=== PATIENT | male | born 1980 | race Caucasian/White ===

== ENCOUNTER 2022-09-25 13:21 | Emergency (ER) | payer SELFPAY ==
[2022-09-25 13:37] VITALS: BP 131/73; PULSE 67; RESP 16; TEMP 37.1; O2SAT 99
--- NOTE | 2022-09-25 13:52 | ED.URI ---
HPI - URI/Sore Throat General Chief Complaint: Upper Respiratory Infection Stated Complaint: positive for covid Time Seen by Provider: 09/25/22 13:45 Source: patient Mode of arrival: ambulatory Limitations: no limitations History of Present Illness HPI Narrative: Mr. Barbosa is a 42-year-old male patient presenting to the clinic today with complaints of being positive for COVID. He reports that his symptoms started on Saturday with nasal congestion and runny nose. Does have some body aches but denies any known fever. Reports he took an at-home COVID test this morning and was positive. MD elicited complaint: cough, rhinorrhea and nasal congestion Related Data Allergies Allergy/AdvReac Type Severity Reaction Status Date / Time No Known Allergies Allergy Unverified 03/07/17 18:55 Review of Systems Review of Systems: Pertinent positives per HPI. Patient denies any fever, chills, rash, headache, visual changes, dizziness, shortness of breath, chest pain, palpitations, nausea, vomiting, diarrhea, constipation, abdominal pain, or any urinary issues. [facility] Family History Family History (Updated 04/27/16 @ 23:21 by DOCTOR UNKNOWN) Mother Hypertension Father Patient's father is in good health Sibling Patient's sister is in good health Patient's brother is in good health Social History Social History Smoking status: Heavy tobacco smoker Alcohol intake: never Comments At the time of my signature, I reviewed and agree with the nursing past medical, surgical, social, and family history. There is no relevant family history pertinent to the patient complaint. Exam Narrative: General: Well-developed, well nourished, in no apparent distress Head: Normocephalic, atraumatic Eyes: Pupils equally round and reactive to light bilaterally, EOM intact, sclera and conjunctive clear, no discharge, lids normal Ears: TMs intact and clear, ear canals clear, no drainage, grossly hearing normal. Nose: Nares patent, clear nasal discharge, no inflammation, no sinus tenderness. Mouth: Oral pharynx without lesions or masses, good dentition, MMM. Postnasal drip Neck: Supple, trachea midline, no enlargement of anterior or posterior cervical nodes, no thyroid masses or goiter palpable. Cardio: Regular rate and rhythm, s1 and s2 normal, no murmur appreciated. Resp: Clear to auscultation bilaterally, no rhonchi, rales, wheezing or rubs Course Course Emergency Course: Portions of this record may have been created with voice recognition software. Level of Care: Express Care Visit Vital Signs Vital signs: Vital Signs Temperature 37.1 C 09/25/22 13:37 Pulse Rate 67 09/25/22 13:37 Respiratory Rate 16 09/25/22 13:37 Blood Pressure 131/73 09/25/22 13:37 Pulse Oximetry 99 09/25/22 13:37 Temperature 37.1 C 09/25/22 13:37 Pulse Rate 67 09/25/22 13:37 Respiratory Rate 16 09/25/22 13:37 Blood Pressure 131/73 09/25/22 13:37 Pulse Oximetry 99 09/25/22 13:37 Vital signs reviewed MDM - URI/Sore Throat MDM Narrative Medical decision making narrative: At the time of visit patient is resting comfortably on the exam table. Lung sounds are clear and SpO2 is 99% on room air. His covid test was positive in the clinic today. Patient does not have any past medical history of COPD, asthma, autoimmune disorder, or high blood pressure. Only risk factors would be heavy smoker and obesity. Offered antivirals however he declines. Supportive measures were discussed with the patient he voiced understanding of discharge instructions and agrees to treatment plan. Differential Diagnosis Differential diagnosis: Likely upper respiratory infection, otitis media, sinusitis, viral infection, bronchitis, influenza, pharyngitis and other (COVID) Discharge Plan Discharge Clinical Impression: COVID-19 Patient Disposition: Home, Self-Care Condition: Stable
== END 2022-09-25 14:10 | disposition home or self-care (01) ==
PROVIDERS: Emergency Provider Nurse Practitioner Family
DX: U07.1 COVID-19 (principal); F17.290 Nicotine dependence, other tobacco product, uncomplicated
CPT/HCPCS: 87426; 99203; C9803; G0463

== ENCOUNTER 2023-07-08 15:50 | Emergency (ER) | payer BC, SELFPAY ==
--- NOTE | 2023-07-08 15:54 | ED.MALEGU ---
HPI - Male Genitourinary General Chief complaint: Urogenital-Male Stated complaint: Uti symptoms Time Seen by Provider: 07/08/23 15:53 Source: patient Mode of arrival: ambulatory Limitations: no limitations History of Present Illness HPI Narrative: Bill is a 43-year-old male patient presenting to clinic today with complaints of possible UTIx 2-3days. Here is reporting some pain at the end of his urinary stream and also some urinary frequency. He denies any trouble starting his stream. No history of BPH. Denies any fever, chills, abdominal pain, or flank pain. He denies any risk for STIs Related Data Allergies Allergy/AdvReac Type Severity Reaction Status Date / Time No Known Allergies Allergy Unverified 07/08/23 15:58 Review of Systems Review of Systems: Pertinent positives per HPI. Patient denies any fever, chills, rash, headache, visual changes, dizziness, cough, runny nose, sore throat, shortness of breath, chest pain, palpitations, nausea, vomiting, diarrhea, constipation, abdominal pain PMFSH Family History Family History Mother Hypertension Father Patient's father is in good health Sibling Patient's sister is in good health Patient's brother is in good health Social History Social History Smoking status: Heavy tobacco smoker Alcohol intake: never Comments At the time of my signature, I reviewed and agree with the nursing past medical, surgical, social, and family history. There is no relevant family history pertinent to the patient complaint. Exam Narrative: General: Well-developed, well nourished, in no apparent distress. Head: Normocephalic, atraumatic. Cardio: Regular rate and rhythm, s1 and s2 normal, no murmur appreciated. Resp: Clear to auscultation bilaterally, no rhonchi, rales, wheezing or rubs. Abdomen: Soft, pliable, bowel sounds present in all quadrants, non-tender to palpation, no organomegly, no CVAT tenderness. Course Course Emergency Course: Portions of this record may have been created with voice recognition software. Level of Care: Express Care Visit Vital Signs Vital signs: Vital signs reviewed MDM - Male Genitourinary MDM Narrative Medical decision making narrative: At the time of visit patient resting exam exam. Urinalysis was performed and shows 1+ leukocyte and trace of blood. We will send for culture. Will place patient on Bactrim DS. Supportive measures were discussed with the patient he voiced understanding of discharge instructions and agrees to treatment plan. Differential Diagnosis Differential diagnosis: Likely urinary tract infection, urethritis, epididymitis, prostatitis and other (Cystitis, sexually transmitted infection) Discharge Plan Discharge Clinical Impression: Urinary tract infection Patient Disposition: Home, Self-Care Condition: Stable Instructions: Antibiotic Form, Urinary Tract Infection in Men (ED) Additional Instructions: UA is positive for bacteria and blood. We will send urine for culture Take Bactrim as prescribed Increase fluids and stay well hydrated Avoid tub baths If sexually active- pee before and after intercourse. Wear cotton panties Avoid tight clothing up against the genitals Follow up with your PCP in 1 week if symptoms persist. Prescriptions: New sulfamethoxazole-trimethoprim [Bactrim DS] 800-160 mg tablet 1 tablet PO Q12H 7 Days Qty: 14 0RF Follow-up/Referrals: UNKNOWN,DOCTOR [Non-Staff] - Time of Disposition: 16:07 Quality NIHSS Nursing Documentation ED NIHSS nursing documentation: reviewed/agree
[2023-07-08 16:06] VITALS: BP 135/78; PULSE 63; RESP 16; TEMP 36.8; O2SAT 100
== END 2023-07-08 16:11 | disposition home or self-care (01) ==
PROVIDERS: Emergency Provider Nurse Practitioner Family
DX: N39.0 Urinary tract infection, site not specified (principal)
CPT/HCPCS: 81003; 87086; 99213; G0463

== ENCOUNTER 2024-05-29 18:28 | Emergency (ER) | payer BC, SELFPAY ==
--- NOTE | 2024-05-29 18:35 | ED.SKABFB ---
HPI - Skin/Abscess/Foreign Bdy General Chief complaint: Skin/Abscess/Foreign Body Stated complaint: LUMP IN L ARMPIT Time Seen by Provider: 05/29/24 18:59 Source: patient and RN notes reviewed Mode of arrival: ambulatory Limitations: dementia History of Present Illness HPI narrative: 44-year-old male presents with concern for a lump in his left axilla. He reports he noticed it 3 days ago. Reports is only tender my touches it. He denies redness, warmth, drainage. MD complaint: other (Redness) Related Data Home Medications Medication Instructions Recorded Confirmed No Home Medications 05/29/24 05/29/24 Allergies Allergy/AdvReac Type Severity Reaction Status Date / Time No Known Allergies Allergy Unverified 07/08/23 15:58 Review of Systems Review of Systems: CONSTITUTIONAL: Denies malaise, chills, sweats, or fever. EYES: Denies visual changes, redness, or discharge. ENT: Denies rhinorrhea, congestion, sinus pain, otalgia or sore throat. CARDIOVASCULAR: Denies chest pain, palpitations, or edema. RESPIRATORY: Denies cough or dyspnea. SKIN: Reports a lump in his left axilla MUSCULOSKELETAL: Denies back pain, joint pain, or myalgia. NEUROLOGIC: Denies numbness, weakness, or headache. PSYCHIATRIC: Denies anxiety or depression. All systems reviewed & are unremarkable except as noted in HPI and below PMFSH Family History Family History Mother Hypertension Father Patient's father is in good health Sibling Patient's sister is in good health Patient's brother is in good health Social History Social History Smoking status: Heavy tobacco smoker Alcohol intake: never Comments At time of signature, agree with nursing past medical, surgical, social and family history. There is no relevant family history pertinent to the presenting complaint Exam Narrative: GENERAL: Well-appearing, well-nourished, and in no acute distress. HEAD: Normocephalic, atraumatic. EYES: PERRLA, conjunctivae clear ENT: Mucous membranes moist. NECK: Supple. No lymphadenopathy CHEST: Clear to auscultation. No respiratory distress. HEART: Regular rate and rhythm. SKIN: Warm, dry. No Erythema, induration, tenderness, warmth noted. No vesicles, bullae, necrosis, ecchymosis, crepitus noted. Palpable mobile lymph node in the left axilla, tender NEURO: Alert and oriented x3. PSYCH: Normal mood and affect Course Course Emergency Course: Patient is aware of diagnosis, understands and agrees to treatment plan. Anticipatory guidance given. Patient agrees to follow-up as directed and is aware of reasons to seek care at the emergency department. Portions of this record may have been created with voice recognition software Level of Care: Express Care Visit Vital Signs Vital signs: Vital Signs Temperature 97.9 F 05/29/24 18:45 Pulse Rate 66 05/29/24 18:45 Respiratory Rate 16 05/29/24 18:45 Blood Pressure 135/82 05/29/24 18:45 Pulse Oximetry 98 05/29/24 18:45 Temperature 97.9 F 05/29/24 18:45 Pulse Rate 66 05/29/24 18:45 Respiratory Rate 16 05/29/24 18:45 Blood Pressure 135/82 05/29/24 18:45 Pulse Oximetry 98 05/29/24 18:45 Reviewed. MDM - Skin/Abscess/Foreign Bdy MDM Narrative Medical decision making narrative: I evaluated this in the express care. History is obtained from patient who is an independent historian and physical exam was performed.? Available medical records were reviewed. ? Exam findings and relevant testing show no acute concerns or changes; patient is non-toxic appearing and is in no distress. No risk factors or findings concerning for epidural abscess, diskitis, vertebral osteomyelitis, cord compression, cauda equina, vertebral fracture or bone malignancy, AAA, or pyelonephritis. Patient instructed to consider further imaging and workup through their
[2024-05-29 18:45] VITALS: BP 135/82; PULSE 66; RESP 16; TEMP 36.6; O2SAT 98
== END 2024-05-29 19:14 | disposition home or self-care (01) ==
PROVIDERS: Emergency Provider Nurse Practitioner
DX: R59.1 Generalized enlarged lymph nodes (principal); F17.200 Nicotine dependence, unspecified, uncomplicated
CPT/HCPCS: 99211; G0463

== ENCOUNTER 2025-01-12 00:51 | Day surgery (SDC) | payer BC, SELFPAY ==
[2025-01-06 12:31] VITALS: BMI 36.2
--- OUTSIDE RECORDS SUMMARY | 2025-01-12 00:55 | XMS_ITS | Continuity of Care Document ---
Author Organization [facility] Address [address] [place] [address] Phone Care Team Providers Care Wildlife Refuge Manager Name Role Phone Yas, Edward Unavailable Unavailable Advance Directives Directive Yes / No Effective Date File Name No Information Encounters Encounter Description Practice Location Reason(s) For Visit Diagnoses Date Provider Providers Copied on Encounter [facility], [address], [place], [place], [id number], [place] tel:[phone] [facility] No Information Apr-0 4-200 1 Doisy Edward. [address] , [address], [place], [address], [place]. tel:[phone] Family History Family Member Type Diagnosis Age At Onset No Information Payers Payer name Insurance type Covered libertarian ID Authoriza tion(s) [employer] SOI CI [id number] Medicaid [facility] [id number] Social History Type Description Quantity Date Captured Comments Sex Male Smoking Status No Information Chief Complaint And Reason For Visit No Information Reason For Referral Reason For Referral No Information History Of Present Illness Encounter Date Complaint History Of Prese nt Illness No Information Functional Status Date Functional Assessmen t No Information Instructions Date Instruction Additional Infor mation No Information Assessments Type Assessment Date No Information Patient Care Teams Name Effective Dates (start - stop) Status Members No Information
[2025-01-12 12:15] VITALS: BP 124/76; PULSE 52; RESP 16; TEMP 36.1; O2SAT 100
[2025-01-12] MEDS: LACTATED RINGERS 1,000 ML 150 ML IV CONT (12:26)
--- NOTE | 2025-01-12 13:00 | P.PNAN_ITS ---
Anes - Initial Pre Proc Eval Procedure: Operation Date: 01/12/25 13:00 Proposed Procedures p Colonoscopy - Madan Huff MD Date/Time: 01/12/25 13:00 Surgeon: Madan Huff MD Pre Op Diagnosis: Hemorrhage of anus and rectum Patient Data Age: 44 Gender: M Height: 1.75 m Weight: 106.9 kg Last Vital Signs Temp 36.1 C L 01/12/25 12:15 Pulse 52 L 01/12/25 12:15 Resp 16 01/12/25 12:15 BP 124/76 01/12/25 12:15 Pulse Ox 100 01/12/25 12:15 O2 Del Method Room Air 01/12/25 12:15 Allergies Allergy/AdvReac Type Severity Reaction Status Date / Time No Known Allergies Allergy Verified 01/12/25 12:13 Home Medications ?Medication ?Instructions ?Recorded ?Confirmed ?Type No Home Medications 05/29/24 01/06/25 History Patient hx anesthesia problems: none Family hx anesthesia problems: none Results Review: All pre-operative results and documents have been reviewed as part of the pre-operative evaluation. [facility] Family History Family History Mother Hypertension Father Patient's father is in good health Sibling Patient's sister is in good health Patient's brother is in good health Social History Social History Smoking packs per day: 1 Smoking cigarettes per day: 20.0 Years smoked: 30 Smoking pack-years: 30.00 Smoking status: Current every day smoker Tobacco type: cigarettes Alcohol intake: never Substance use type: marijuana Other substance usage details: smoking Living arrangements: with family Additional living arrangements comments: Spiritual care concerns: No Anes - Eval Final PreProcedure Day of Procedure 01/12/25 13:00 Patient weight: obese Heart: regular rate and rhythm Lungs: clear to auscultation Airway: Mallampati scale class II Neurological: alert and oriented Last oral intake: >/= 8 hours ASA classification: III Emergent: no Anesthetic plan: proceed Anesthesia type and monitoring: general GIVS and standard monitoring Results Review: All pre-operative results and documents have been reviewed as part of the pre- operative evaluation. Informed Consent: The patient's anesthetic plan and its attendant risks and benefits were discussed with the patient/family/POA. Questions were solicited and answers provided to the satisfaction of the patient/family/POA.
--- NOTE | 2025-01-12 13:10 | PM.HPGS ---
History of Present Illness History of Present Illness Consent: Risks, benefits, and alternatives have been discussed and questions answered. Patient agrees to proceed with procedure. Chief complaint: Hemorrhage of anus and rectum Narrative: Bill Barbosa is a 44 year old male here for first colonoscopy, had intermittent blood in stool Review of Systems Review of Systems: All systems reviewed & are unremarkable except as noted in HPI and below PMFSH Family History Family History Mother Hypertension Father Patient's father is in good health Sibling Patient's sister is in good health Patient's brother is in good health Social History Social History Smoking packs per day: 1 Smoking cigarettes per day: 20.0 Years smoked: 30 Smoking pack-years: 30.00 Smoking status: Current every day smoker Tobacco type: cigarettes Alcohol intake: never Substance use type: marijuana Other substance usage details: smoking Living arrangements: with family Additional living arrangements comments: Spiritual care concerns: No Meds Home Medications and Allergies Home Medications ?Medication ?Instructions ?Recorded ?Confirmed ?Type No Home Medications 05/29/24 01/06/25 History Allergies Allergy/AdvReac Type Severity Reaction Status Date / Time No Known Allergies Allergy Verified 01/12/25 12:13 Vital Signs Vital Signs - 24 hr 01/12/25 12:15 Temperature 97.0 F L Pulse Rate 52 L Respiratory Rate 16 Blood Pressure 124/76 Pulse Oximetry 100 Oxygen Delivery Room Air Exam Const: General: comfortable and no acute distress HENMT: Face/Nose/Sinus: Normal nares present Eyes: General: appearance normal, both eyes and all related structures Neck: Neck: no JVD Resp: Auscultation: clear to auscultation bilaterally Cardio: Rate: regular rate Rhythm: regular rhythm GI: Inspection: non-distended GI Palp: Yes Soft to palpation Skin: General skin exam: normal color Neuro: General: gait normal Speech: normal speech Extrem: General: normal to inspection Psych: Mental Status: mental status grossly normal Assessment and Plan Assessment and plan (1) BRBPR (bright red blood per rectum): Code(s): K62.5 - Hemorrhage of anus and rectum Status: Acute Assessment and Plan: colonoscopy
[2025-01-12 13:48] VITALS: BP 101/84; PULSE 52; RESP 19; O2SAT 100
[2025-01-12 13:58] VITALS: BP 117/75; PULSE 59; RESP 19; O2SAT 100
[2025-01-12 14:08] VITALS: BP 124/77; PULSE 55; RESP 20; O2SAT 100
== END 2025-01-12 14:21 | disposition home or self-care (01) ==
PROVIDERS: PCP Family Medicine; Visit Provider Internal Medicine Gastroenterology
PROC: 0DJD8ZZ Inspection of Lower Intestinal Tract, Via Natural or Artificial Opening Endoscopic (ICD-10-PCS; CPT 45378; principal; 2025-01-12 13:00)
DX: D12.0 Benign neoplasm of cecum (principal); D12.3 Benign neoplasm of transverse colon; D12.4 Benign neoplasm of descending colon; D12.5 Benign neoplasm of sigmoid colon; D12.8 Benign neoplasm of rectum; F17.210 Nicotine dependence, cigarettes, uncomplicated; F12.90 Cannabis use, unspecified, uncomplicated; E66.9 Obesity, unspecified; Z68.34 Body mass index [BMI] 34.0-34.9, adult
CPT/HCPCS: 45385; 88305; J2704; J7120

== ENCOUNTER 2025-05-01 16:50 | Emergency (ER) | payer BC, SELFPAY ==
[2025-05-01 16:58] VITALS: BP 115/65; PULSE 67; RESP 16; TEMP 36.9; O2SAT 99
--- NOTE | 2025-05-01 17:18 | ED_ITS ---
HPI - Dental/Oral General Chief complaint: Dental/Oral Stated complaint: Infected Tooth Time Seen by Provider: 05/01/25 17:06 Source: patient and RN notes reviewed Mode of arrival: ambulatory Limitations: no limitations History of Present Illness HPI Narrative: Patient presents today complaining of left upper jaw swelling since yesterday and believes he has an abscess to a broken tooth. States the area has been infected several times in the past. Reports the pain as 3/10, but only with touching of the area. He has tried no OTC treatment prior to arrival. States he will call and make a dental appointment on Saturday. Denies fever, shortness of breath, difficulty swallowing, trismus Related Data Allergies Allergy/AdvReac Type Severity Reaction Status Date / Time No Known Allergies Allergy Verified 05/01/25 16:54 [facility] Family History Family History Mother Hypertension Father Patient's father is in good health Sibling Patient's sister is in good health Patient's brother is in good health Social History Social History Smoking packs per day: 1 Smoking cigarettes per day: 20.0 Years smoked: 30 Smoking pack-years: 30.00 Smoking status: Current every day smoker Tobacco type: cigarettes Alcohol intake: never Substance use type: marijuana Other substance usage details: smoking Living arrangements: with family Additional living arrangements comments: Spiritual care concerns: No Comments At time of signature, I have reviewed and agree with nursing past medical, surgical, social and family history unless otherwise noted. Please see nursing chart for further information. There is no relevant family history pertinent to the presenting complaint Exam Narrative: GENERAL: Well-appearing, well-nourished, and in no acute distress. HEAD: Normocephalic, atraumatic. EYES: EOMI. No redness or drainage. Conjunctivae normal. ENT: Mucous membranes pink and moist. Moderate swelling of the left upper jaw line. Grossly poor dentition with multiple missing teeth and multiple teeth broken off at the gumline. Painful tooth (#14) is broken in half with half missing. NECK: Normal AROM.. CHEST: No respiratory distress. EXTREMITIES: Normal range of motion. No edema. SKIN: Warm, dry, no rash. Capillary refill normal. Normal skin turgor. NEURO: No focal deficits. Alert and oriented x3. Gait steady. PSYCH: Normal affect. No signs of depression or anxiety. Course Course Level of Care: Express Care Visit Vital Signs Vital signs: Vital Signs Temperature 98.5 F 05/01/25 16:58 Pulse Rate 67 05/01/25 16:58 Respiratory Rate 16 05/01/25 16:58 Blood Pressure 115/65 05/01/25 16:58 Pulse Oximetry 99 05/01/25 16:58 Temperature 98.5 F 05/01/25 16:58 Pulse Rate 67 05/01/25 16:58 Respiratory Rate 16 05/01/25 16:58 Blood Pressure 115/65 05/01/25 16:58 Pulse Oximetry 99 05/01/25 16:58 Reviewed MDM - Dental/Oral MDM Narrative Medical decision making narrative: 44-year-old male patient presents today with left upper jaw swelling and tooth discomfort since yesterday. Patient has poor dentition with multiple missing teeth and broken teeth. Affected tooth is broken broken in half with half missing. No red flag symptoms that would warrant ED transfer for concerns of Leo's angina or other deep neck infection. Vital signs stable. Patient will call on Saturday to schedule a follow-up visit with his dentist. Prescription for amoxicillin sent to pharmacy. Anticipatory guidance given. Differential Diagnosis Differential diagnosis: Likely gingival abscess, dental caries, toothache, dental abscess, fracture of tooth and other (Leo's angina) Critical Care Time Critical Care Time Critical Care Time: No Discharge Plan Discharge Clinical Impression: Dental abscess Patient Disposition: Home Condition: Stable Instructions: Dental Abscess (ED) Additional Instructions: Please take the amoxicillin as prescribed until gone. Taking anti- inflammatories such as Aleve or ibuprofen for inflammation, if able. Call your dentist on Saturday and schedule a follow-up visit. If you develop worsening symptoms such as shortness of breath, difficulty swallowing, difficulty opening her mouth, or fever, please go to the ER immediately for further evaluation and treatment. Patient Language: Thai Prescriptions: New amoxicillin 875 mg tablet 875 mg PO Q12H 10 Days Qty: 20 0RF Follow-up/Referrals: Jerry Red MD [Primary Care Provider] - Time of Disposition: 17:24
== END 2025-05-01 17:25 | disposition home or self-care (01) ==
PROVIDERS: Emergency Provider Nurse Practitioner; PCP Family Medicine
DX: K04.7 Periapical abscess without sinus (principal); F17.210 Nicotine dependence, cigarettes, uncomplicated; F12.90 Cannabis use, unspecified, uncomplicated
CPT/HCPCS: 99213; G0463